=== PATIENT | female | born 1985 | race Caucasian/White ===

== ENCOUNTER 2024-03-24 14:09 | Outpatient (CLI) | payer OTHER, SELFPAY ==
--- NOTE | ~2024-03-24 | NM_ITS ---
EXAMINATION: NM thyroid scan w uptake DATE: 03/25/2024 14:37 INDICATION: Abnormal blood test COMPARISON: None. TECHNIQUE: 351 microcuries [id number] was administered orally in capsule form. Scintigraphic images of th e thyroid gland were obtained at 24 hours. Thyroid uptake was calculated by the technologist. FINDINGS: The thyroid uptake is 39.8% (normal 10-30%), with the right lobe measuring 19.8% uptake and the left 20.6%. There is no focal area of decreased or increased activity to suggest hypofunctioning or hyperf unctioning nodule. IMPRESSION: 1. Diffusely increased 24-hour iodine uptake throughout the thyroid consistent with Graves' disease. Reviewed, dictated and finalized at location A.
== END 2024-03-24 14:10 | disposition home or self-care (01) ==
LOC: ANHIMG 14:13
DX: E05.90 Thyrotoxicosis, unspecified without thyrotoxic crisis or storm (principal)
CPT/HCPCS: 78014; A9516